=== PATIENT | male | born 1985 | race Caucasian/White ===

== ENCOUNTER 2019-03-07 14:45 | Emergency (ER) | payer OTHER, SELFPAY ==
--- NOTE | 2019-03-07 14:58 | NUR.NOTE ---
pt states that he has 10/10 neck pain that started 1 hr ago. pt states that the pain feels like a spasm as well as numbness also states that he is extremely nervous and jittery had identical symptoms around [place] was treated at [facility] and diagnosed with a panic attack
[2019-03-07 15:02] VITALS: BP 162/95; PULSE 98; RESP 25; TEMP 37; O2SAT 100
--- NOTE | 2019-03-07 15:04 | W.ED.GENAD ---
Discharge Plan Disposition Patient Disposition: HOME Discharge Details Chief Complaint: Nk/Back Pain Clinical Impression: Neck pain, Paresthesia of upper extremity Primary Care Provider: Crystal Young ED Provider: Primitivo Bennett Home Meds and New Rx's Prescriptions: Continued metaxalone [Skelaxin] 800 mg Tablet 800 mg PO QID RF: 0 Discharge Instructions Instructions: Paresthesia (ED), Neck Pain (ED) Additional Instructions: Please avoid overhead activities or any activities that worsen pain or produce numbness/tingling. Please follow-up with your neurologist or Dr. Maria. Call tomorrow to arrange follow-up. Please contact your primary care physician to arrange follow-up. Your blood pressure was elevated today. We should discuss this with your primary care physician. Return to the ER for any worsening or new concerning symptoms. Referrals: Crystal Young [Primary Care Provider] - Raysa Maria MD [ [facility] STAFF PHYSICIAN] - Discharge Data Discharge Date/Time-TO BE ENTERED AT DEPARTURE: 03/07/19 20:00 Medical Decision Making <ROMEO Walker - Last Filed: 03/08/19 20:19> Patient is a 33-year-old [id number] male presenting today with recurrent neck pain. Reports that he has chronic neck pain for which he sees a chiropractor. States he has had episode of severe neck pain like this historically, was previously seen at [facility]. These records were requested. Patient reports approximate 1 hour prior to arrival, he was working as a cooley doing overhead woodworking when he has sudden onset of neck pain that radiates on the bilateral upper extremities equally. Reports that his neck and arms are numb. Denies any weakness. Denies any trauma. No trauma prior to the initial onset of pain last year. Denies any recent illness. No fevers or chills. Denies any IV drug use. Denies any headache. No visual change. States that he is been feeling shaky in his lower extremities but attributes this to his severe anxiety. Patient does appear very anxious on exam. On exam, patient appears quite anxious. He is moving about quite comfortably with no evidence of discomfort reporting his pain is a 10 out of 10. He has full rotation movements of the neck and full flexion. Extension is limited secondary to pain. Pain is fairly diffuse with this movement rating down the entirety of the cervical spine. No midline tenderness to palpation, no step-off noted. No spasm palpated on exam. Two-point discrimination is intact, reflexes are equal bilaterally, strength is equal bilaterally with good extension of the wrist against resistance. Is full range of motion of the shoulders with no pain. Postvoid residual 55. Patient given Tylenol, ibuprofen and Valium to help with discomfort. Encourage gentle range of motion. I discussed risk and benefits of imaging. At this point, the patient does not have any evidence of infection, neurologic deficit or trauma, I do not know that imaging is necessary at this time. Also concidered vascular source but symptoms come/go and are equal bilaterally making this less likely. However, patient reports that my bones shift a lot. This is reported to him by his chiropractor for this reason he is requesting imaging. Will obtain plain films of the cervical spine to evaluate for any gross abnormality. At the end of my shift, care transitioned to Dr. Bennett. <Primitivo Bennett MD - Last Filed: 03/07/19 19:57> Care signed out by ROMEO Cooley. Please see ROMEO Baxter's documentation regarding initial ED presentation and course. Plan at signout was to await diagnostic reports from outside hospital and reassess patient for disposition. Despite attempts to obtain records from [facility] these were not available. X-ray of the cervical spine interpreted by radiology: No acute abnormality, loss of normal cervical lordosis. I reassessed the patient who noted that his paresthesias in upper extremities were resolved. He does also note now that he had some presyncope associated with his symptoms earlier today. Consider vascular insufficiency and potential dissection. CT of the cervical spine without contrast interpreted by radiology: No acute findings. No spinal stenosis. No neural foraminal narrowing. Loss of normal cervical lordosis. CTA of the neck interpreted by radiology: No acute findings. Left vertebral artery normal with no stenosis, no dissection or occlusion. Right vertebral artery normal with no stenosis, no dissection or occlusion. An EKG was reviewed and interpreted by me: Sinus rhythm 66 bpm, normal axis, nondiagnostic. Screening labs including CBC and chemistry reviewed by me. No electrolyte abnormalities. I did obtain outside hospital records from the [place]. MRI of the cervical spinen thoracic spine, lumbar spine on 10/06/2018 report reviewed: Stable very mild degenerative disc disease of the cervical spine in the setting of congenital, intrinsically narrowed cervical spinal canal. No central canal stenosis or cord signal abnormality. Mild to moderate right neuroforaminal narrowing at C4-5 and mild right neuroforaminal narrowing at C5-6. Small central disc protrusion at T10-11, new since prior. No central canal stenosis or neuroforaminal narrowing within the thoracic spine. Degenerative disc disease of the L4-L5 and L5-L1 levels, with the prior L4-L5 right central disc protrusion slightly increased in size from prior and now extending superiorly to the level of the L4 inferior endplate, compatible with a disc extrusion. Mild to moderate canal stenosis at L4-5 unchanged. Abutment of the transversing bilateral L5 and S1 nerve roots, unchanged. Unclear etiology for patient's constellation of symptoms. I do suspect anxiety is contrubiting to his symptoms and presentation today. I did speak with Dr. Maria, neurology about the case and she would be happy to see the patient in follow-up if symptoms persist for nerve conduction studies. I have provided this option to the patient although I think [facility] as he already has established care with neurology. Patient was encouraged to follow-up with neurology and to call tomorrow to arrange follow-up. I also recommended he return immediately to the emergency department for any worsening or new concerning symptoms. Patient was instructed to not perform any overhead activities or any activities that reproduce or worsen symptoms. HPI <ROMEO Walker - Last Filed: 03/08/19 20:19> General Mode of arrival: ambulatory. Date/Time Provider Initiated Documentation: 03/07/19 15:03. Limitations to Documentation: no limitations. Information obtained by: patient and RN notes reviewed. History of Present Illness 33 year old M presents to the emergency department with the chief complaint of neck pain, described as severe, with intensity rated at 10. Quality is described as stabbing, and is localized to the neck. Patient extremity (Bilateral upper extremities and torso). Patient started experiencing this hour(s) (1) and it has been constant. No relieving factors improve symptom(s), No exacerbating factors reported . Patient notes no other symptoms.; denies cough, diaphoresis, fever/chills, headaches, loss of appetite, malaise, nausea/vomiting, rash, seizure, shortness of breath, syncope and weakness. Patient did receive the following treatments prior to arrival, none Related Data Home Medications Medication Instructions Recorded Confirmed metaxalone [Skelaxin] 800 mg PO QID 03/07/19 03/07/19 Allergies Allergy/AdvReac Type Severity Reaction Status Date / Time No Known Allergies Allergy Unverified 03/07/19 15:04 General Stated Complaint: Nk/Back Pain KRISTAN: 3 Review of Systems <ROMEO Walker - Last Filed: 03/08/19 20:19> Constitutional Reports as per HPI, Denies chills, Denies fever(s), Denies headache(s) and Denies weakness ENT Denies headache(s) Cardiovascular Reports as per HPI, Denies dyspnea and Denies dyspnea on exertion Respiratory Reports as per HPI, Denies cough, Denies pain on inspiration, Denies pain with cough, Denies dyspnea and Denies dyspnea on exertion Gastrointestinal Denies abdominal pain, Denies change in bowel habits, Denies nausea and Denies vomiting Genitourinary Denies urinary hesitancy and Denies urinary incontinence Musculoskeletal Reports as per HPI, Denies abnormal gait, Reports back pain (back pain), Denies deformity, Denies joint swelling, Denies limited range of motion, Reports muscle cramps (endorses cramps in neck), Reports numbness (bilateral upper extremities), Reports radiating pain into limb and Denies tingling Integumentary/Breasts Reports as per HPI, Denies rash and Denies wounds Neurologic Reports as per HPI, Denies abnormal gait, Denies headache(s), Reports numbness (bilateral upper extremities), Denies tingling, Denies paresthesias and Denies weakness PFSH <ROMEO Walker - Last Filed: 03/08/19 20:19> Social History Smoking/Tobacco Use Status: Current-Occasional Tobacco Type: cigarettes Alcohol Intake: current Alcohol Intake frequency: a few times a month Alcohol type: beer Drug use: Occasionally Substance use type: marijuana Do you feel safe at home: Yes Do you feel safe in your relationship?: Yes Exam <ROMEO Walker Last Filed: 03/08/19 20:19> Const General: cooperative, healthy appearing, comfortable, no acute distress, well developed, well groomed and anxious Nutritional Appearance: average body habitus and well nourished Orientation: alert and awake Eyes General: appearance normal, both eyes and all related structures Neck Neck: limited ROM (lmited extension, full ROM otherwise), no lymphadenopathy, no meningeal signs and trachea midline Chest Chest: normal inspection of the chest, normal palpation of entire chest wall and no localized rib tenderness Resp Effort & Inspection: normal respiratory effort, able to speak in complete sentences and no respiratory distress Auscultation: clear to auscultation bilaterally Cardio Rate: regular rate Rhythm: regular rhythm Heart Sounds: S1 normal and S2 normal Back/Spine/Pelvis Cervical Spine: normal cervical lordosis, No cervical ROM normal (limited extension, full flexion and ROM), No cervical muscular tenderness, pain with cervical ROM, No cervical spasm, No cervical spinal tenderness and No step off deformity Thoracic/Lumbar Spine: thoracic and lumbar spine normal to inspection Skin General skin exam: no rashes or lesions noted Lesions: no lesions Rashes: no rashes Trauma: no lacerations or abrasions Neuro General: alert and awake Cognition: normal cognition Speech: speech normal Gait: normal gait Motor: muscle tone normal throughout, strength 5/5 throughout, no pronator drift, no movement abnormalities noted and no fasciculations Sensory Exam: no sensory deficits noted and normal double simultaneous stimulation (2 point in BUE intact) DTR's: Rt Biceps: 2+, Lt Biceps: 2+, Rt Brachioradialis: 2+ and Lt Brachioradialis: 2+ Extrem General: normal to inspection, full ROM, normal capillary refill, no joint enlargement, no clubbing, cyanosis or edema, no pedal edema, no calf tenderness and normal gait Right upper extremity: full ROM, normal capillary refill and no joint enlargement Left upper extremity: full ROM, normal capillary refill and no joint enlargement Psych Appearance: grossly normal and well kempt Mental Status: mental status grossly normal Speech and Movement: speech and movement normal Course <ROMEO Walker - Last Filed: 03/08/19 20:19> Vital Signs Temperature 37 C 03/07/19 15:02 Pulse 98 H 03/07/19 15:02 Respiratory Rate 25 H 03/07/19 15:02 Blood Pressure 162/95 H 03/07/19 15:02 Pulse Oximetry 100 03/07/19 15:02 Temperature 37 C 03/07/19 15:02 Temperature Source Skin 03/07/19 15:02 Pulse 98 H 03/07/19 15:02 Respiratory Rate 25 H 03/07/19 15:02 Blood Pressure 162/95 H 03/07/19 15:02 Blood Pressure Position Sitting 03/07/19 15:02 Pulse Oximetry 100 03/07/19 15:02 Oxygen Delivery Method Room Air 03/07/19 15:02 Oxygen Flow Rate 0 03/07/19 15:02 Pain Level 10 03/07/19 15:02 Sign Out <ROMEO Walker - Last Filed: 03/08/19 20:19> Sign Out Data: Sign Out Comment: Care transitioned to Dr. Bennett. Neuro exam intact, awaiting results from medication as well as x-ray results. Last updated by Natasha Baxter PA at 03/07/19 16:28
--- NOTE | 2019-03-07 15:36 | DI.COMBO_ITS ---
SYMPTOM/DIAGNOSIS: POST NECK PAIN, PRESYNCOPE, BILAT UPPER EXT PARESTHESIA, NUMBNESS CERVICAL SPINE: There is some straightening of the normal cervical lordosis. The vertebral bodies and disc spaces are intact. The posterior elements and neural canal are unremarkable The odontoid is closely applied to the anterior arch of C 1. SUMMARY: Aside from mild straightening of the normal cervical lordosis, the examination is unremarkable. There is no demonstrated fracture or evidence of a dislocation. CAROTID/NECK CTA: CT angiography was performed with multi slice acquisition and multi planar and 3D reconstruction. The study was carried out with an intravenous administration of 85 cc's of Omnipaque 350. The right common carotid artery is normal. The right internal carotid artery is normal. Both show no stenosis or evidence of dissection. The right external carotid artery is normal. The right vertebral artery is normal. The left common carotid artery is normal. The left internal carotid artery is normal. The left external carotid artery is normal. The left vertebral artery is normal. SUMMARY: No acute abnormality is identified. CERVICAL SPINE CT: There is some straightening of the normal cervical lordosis. The vertebral bodies and disc spaces and neural canal and posterior elements and odontoid and prevertebral soft tissues are unremarkable. IMPRESSION: No acute abnormality is identified.
--- NOTE | 2019-03-07 15:40 | ED.GENADUL_ITS ---
Discharge Plan Disposition Patient Disposition: HOME Discharge Details Chief Complaint: Nk/Back Pain Clinical Impression: Neck pain, Paresthesia of upper extremity Primary Care Provider: Crystal Young ED Provider: Primitivo Bennett Home Meds and New Rx's Prescriptions: Continued metaxalone [Skelaxin] 800 mg Tablet 800 mg PO QID RF: 0 Discharge Instructions Instructions: Paresthesia (ED), Neck Pain (ED) Additional Instructions: Please avoid overhead activities or any activities that worsen pain or produce numbness/tingling. Please follow-up with your neurologist or Dr. Maria. Call tomorrow to arrange follow-up. Please contact your primary care physician to arrange follow-up. Your blood pressure was elevated today. We should discuss this with your primary care p halley. Return to the ER for any worsening or new concerning symptoms. Referrals: Crystal Young [Primary Care Provider] - Raysa Maria MD [ [facility] STAFF PHYSICIAN] - Discharge Data Discharge Date/Time-TO BE ENTERED AT DEPARTURE: 03/07/19 20:00 Medical Decision Making <ROMEO Walker - Last Filed: 03/08/19 20:19> Patient is a 33-year-old [id number] male presenting today with recurrent neck pain. Reports that he has chronic neck pain for which he sees a chiropractor. States he has had episode of severe neck pain like this historically, was previously seen at [facility]. These records were requested. Patient reports approximate 1 hour prior to arrival, he was working as a cooley doing overhead woodworking when he has sudden onset of neck pain that radiates on the bilateral upper extremities equally. Reports that his neck and arms are numb. Denies any weakness. Denies any trauma. No trauma prior to the initial onset of pain last year. Denies any recent illness. No fevers or chills. Denies any IV drug use. Denies any headache. No visual change. States that he is been feeling shaky in his lower extremities but attributes this to his severe anxiety. Patient does appear very anxious on exam. On exam, patient appears quite anxious. He is moving about quite comfortably with no evidence of discomfort reporting his pain is a 10 out of 10. He has full rotation movements of the neck and full flexion. Extension is limited secondary to pain. Pain is fairly diffuse with this movement rating down the entirety of the cervical spine. No midline tenderness to palpation, no step-off noted. No spasm palpated on exam. Two-point discrimination is intact, reflexes are equal bilaterally, strength is equal bilaterally with good extension of the wrist against resistance. Is full range of motion of the shoulders with no pain. Postvoid residual 55. Patient given Tylenol, ibuprofen and Valium to help with discomfort. Encourage gentle range of motion. I discussed risk and benefits of imaging. At this point, the patient does not have any evidence of infection, neurologic deficit or trauma, I do not know that imaging is necessary at this time. Also concidered vascular source but symptoms come/go and are equal bilaterally making this less likely. However, patient reports that my bones shift a lot. This is reported to him by his chiropractor for this reason he is requesting imaging. Will obtain plain films of the cervical spine to evaluate for any gross abnormality. At the end of my shift, care transitioned to Dr. Bennett. <Primitivo Bennett MD - Last Filed: 03/07/19 19:57> Care signed out by ROMEO Cooley. Please see ROMEO Baxter's documentation regarding initial ED presentation and course. Plan at signout was to await diagnostic reports from outside hospital and reassess patient for disposition. Despite attempts to obtain records from [facility] these were not available. X-ray of the cervical spine interpreted by radiology: No acute abnormality, loss of normal cervical lordosis. I reassessed the patient who noted that his paresthesias in upper extremities were resolved. He does also note now that he had some presyncope associated wi th his symptoms earlier today. Consider vascular insufficiency and potential dissection. CT of the cervical spine without contrast interpreted by radiology: No acute findings. No spinal stenosis. No neural foraminal narrowing. Loss of normal cervical lordosis. CTA of the neck interpreted by radiology: No acute findings. Left vertebral artery normal with no stenosis, no dissection or occlusion. Right vertebral artery normal with no stenosis, no dissection or occlusion. An EKG was reviewed and interpreted by me: Sinus rhythm 66 bpm, normal axis, nondiagnostic. Screening labs including CBC and chemistry reviewed by me. No electrolyte abnormalities. I did obtain outside hospital records from the [place]. MRI of the cervical spinen thoracic spine, lumbar spine on 10/06/2018 report reviewed: Stable very mild degenerative disc disease of the cervical spine in the setting of congenital, intrinsically narrowed cervical spinal canal. No central canal stenosis or cord signal abnormality. Mild to moderate right neuroforaminal narrowing at C4-5 and mild right neuroforaminal narrowing at C5-6. Small central disc protrusion at T10-11, new since prior. No central canal stenosis or neuroforaminal narrowing within the thoracic spine. Degenerative disc disease of the L4-L5 and L5-L1 levels, with the prior L4-L5 right central disc protrusion slightly increased in size from prior and now extending superiorly to the level of the L4 inferior endplate, compatible with a disc extrusion. Mild to moderate canal stenosis at L4-5 unchanged. Abutment of the transversing bilateral L5 and S1 nerve roots, unchanged. Unclear etiology for patient's constellation of symptoms. I do suspect anxiety is contrubiting to his symptoms and presentation today. I did speak with Dr. Maria, neurology about the case and she would be happy to see the patient in follow-up if symptoms persist for nerve conduction studies. I have provided this option to the patient although I think [facility] as he already has established care with neurology. Patient was encouraged to follow-up with neurology and to call tomorrow to arrange follow-up. I also recommended he return immediately to the emergency department for any worsening or new concerning symptoms. Patient was instructed to not perform any overhead activities or any activities that reproduce or worsen symptoms. HPI <ROMEO Walker - Last Filed: 03/08/19 20:19> General Mode of arrival: ambulatory . Date/Time Provider Initiated Documentation: 03/07/19 15:03 . Limitations to Documentation: no limitations . Information obtained by: patient and RN notes reviewed . History of Present Illness 33 year old M presents to the emergency department with the chief complaint of neck pain, described as severe, with intensity rated at 10. Quality is described as stabbing, and is localized to the neck. Patient extremity (Bilateral upper extremities and torso). Patient started experiencing this hour(s) (1) and it has been constant. No relieving factors improve symptom(s), No exacerbating factors reported . Patient notes no other symptoms.; denies cough, diaphoresis, fever/chills, headaches, loss of appetite, malaise, nausea/vomiting, rash, seizure, shortness of breath, syncope and weakness. Patient did receive the following treatments prior to arrival, none Related Data Home Medications Medication Instructions Recorded Confirmed metaxalone [Skelaxin] 800 mg PO QID 03/07/19 03/07/19 Allergies Allergy/AdvReac Type Severity Reaction Status Date / Time No Known Allergies Allergy Unverified 03/07/19 15:04 General Stated Complaint: Nk/Back Pain KRISTAN: 3 Review of Systems <ROMEO Walker - Last Filed: 03/08/19 20:19> Constitutional Reports as per HPI, Denies chills, Denies fever(s), Denies headache(s) and Denies weakness ENT Denies headache(s) Cardiovascular Reports as per HPI, Denies dyspnea and Denies dyspnea on exertion Respiratory Reports as per HPI, Denies cough, Denies pain on inspiration, Denies pain with cough, Denies dyspnea and Denies dyspnea on exertion Gastrointestinal Denies abdominal pain, Denies change in bowel habits, Denies nausea and Denies vomiting Genitourinary Denies urinary hesitancy and Denies urinary incontinence Musculoskeletal Reports as per HPI, Denies abnormal gait, Reports back pain (back pain), Denies deformity, Denies joint swelling, Denies limited range of motion, Reports muscle cramps (endorses cramps in neck), Reports numbness (bilateral upper extremit ies), Reports radiating pain into limb and Denies tingling Integumentary/Breasts Reports as per HPI, Denies rash and Denies wounds Neurologic Reports as per HPI, Denies abnormal gait, Denies headache(s), Reports numbness (bilateral upper extremities), Denies tingling, Denies paresthesias and Denies weakness PFSH <ROMEO Walker - Last Filed: 03/08/19 20:19> Social History Smoking/Tobacco Use Status: Current-Occasional Tobacco Type: cigarettes Alcohol Intake: current Alcohol Intake frequency: a few times a month Alcohol type: beer Drug use: Occasionally Substance use type: marijuana Do you feel safe at home: Yes Do you feel safe in your relationship?: Yes Exam <ROMEO Walker - Last Filed: 03/08/19 20:19> Const General: cooperative, healthy appearing, comfortable, no acute distress, well developed, well groomed and anxious Nutritional Appearance: average body habitus and well nourished Orientation: alert and awake Eyes General: appearance normal, both eyes and all related structures Neck Neck: limited ROM (lmited extension, full ROM otherwise), no lymphadenopathy, no meningeal signs and trachea midline Chest Chest: normal inspection of the chest, normal palpation of entire chest wall and no localized rib tenderness Resp Effort & Inspection: normal respiratory effort, able to speak in complete sentences and no respiratory distress Auscultation: clear to auscultation bilaterally Cardio Rate: regular rate Rhythm: regular rhythm Heart Sounds: S1 normal and S2 normal Back/Spine/Pelvis Cervical Spine: normal cervical lordosis, No cervical ROM normal (limited extension, full flexion and ROM), No cervical muscular tenderness, pain with cervical ROM, No cervical spasm, No cervical spinal tenderness and No step off deformity Thoracic/Lumbar Spine: thoracic and lumbar spine normal to inspection Skin General skin exam: no rashes or lesions noted Lesions: no lesions Rashes: no rashes Trauma: no lacerations or abrasions Neuro General: alert and awake Cognition: normal cognition Speech: speech normal Gait: normal gait Motor: muscle tone normal throughout, strength 5/5 throughout, no pronator drift, no movement abnormalities noted and no fasciculations Sensory Exam: no sensory deficits noted and normal double simultaneous stimulation (2 point in BUE intact) DTR's: Rt Biceps: 2+, Lt Biceps: 2+, Rt Brachioradialis: 2+ and Lt Brachioradialis: 2+ Extrem General: normal to inspection, full ROM, normal capillary refill, no joint enlargement, no clubbing, cyanosis or edema, no pedal edema, no calf tenderness and normal gait Right upper extremity: full ROM, normal capillary refill and no joint enlargement Left upper extremity: full ROM, normal capillary refill and no joint enlargement Psych Appearance: grossly normal and well kempt Mental Status: mental status grossly normal Speech and Movement: speech and movement normal Course <ROMEO Walker - Last Filed: 03/08/19 20:19> Vital Signs Temperature 37 C 03/07/19 15:02 Pulse 98 H 03/07/19 15:02 Respiratory Rate 25 H 03/07/19 15:02 Blood Pressure 162/95 H 03/07/19 15:02 Pulse Oximetry 100 03/07/19 15:02 Temperature 37 C 03/07/19 15:02 Temperature Source Skin 03/07/19 15:02 Pulse 98 H 03/07/19 15:02 Respiratory Rate 25 H 03/07/19 15:02 Blood Pressure 162/95 H 03/07/19 15:02 Blood Pressure Position Sitting 03/07/19 15:02 Pulse Oximetry 100 03/07/19 15:02 Oxygen Delivery Method Room Air 03/07/19 15:02 Oxygen Flow Rate 0 03/07/19 15:02 Pain Level 10 03/07/19 15:02 Sign Out <ROMEO Walker - Last Filed: 03/08/19 20:19> Sign Out Data: Sign Out Comment: Care transitioned to Dr. Bennett. Neuro exam intact, awaiting results from medication as well as x-ray results. Last updated by Natasha Baxter PA at 03/07/19 16:28
[2019-03-07] MEDS: Ibuprofen 600 MG TAB PO (15:47)
[2019-03-07] MEDS: diazePAM 5 MG TAB PO (15:47)
--- NOTE | 2019-03-07 15:48 | NUR.NOTE ---
bladder scan post void was 55 ML
--- NOTE | 2019-03-07 16:30 | DI.VRAD_ITS ---
EXAM: XR Cervical Spine, 4 or 5 Views EXAM DATE/TIME: 03/07/2019 3:38 PM CLINICAL HISTORY: 33 years old, male; Neck pain and other: Numbess TECHNIQUE: Imaging protocol: XR of the cervical spine, 4 or 5 views. COMPARISON: No relevant prior studies available. FINDINGS: Vertebrae: Normal. No acute fracture. Loss of normal cervical lordosis. Soft tissues: Normal. IMPRESSION: No acute findings. Dictated and Authenticated by: Delano Green MD. Ordering:ALLI Kaur MD
--- NOTE | 2019-03-07 16:57 | NUR.NOTE ---
pt states that his neck pain has decreased and sensation has returned
--- NOTE | 2019-03-07 18:21 | DI.VRAD_ITS ---
EXAM: CT Cervical Spine Without Contrast EXAM DATE/TIME: 03/07/2019 5:22 PM CLINICAL HISTORY: 33 years old, male; Signs and symptoms; Other: Pain in neck, paresthesias b/l ue's, presyncope TECHNIQUE: Imaging protocol: Axial computed tomography images of the cervical spine without contrast. Coronal and sagittal reformatted images were created and reviewed. Radiation optimization: All CT scans at this facility use at least one of these dose optimization techniques: automated exposure control; mA and/or kV adjustment per patient size (includes targeted exams where dose is matched to clinical indication); or iterative reconstruction. COMPARISON: CR XR cervical spine comp 4-5V 03/07/2019 4:01 PM FINDINGS: Vertebrae: No acute fracture. Loss of normal cervical lordosis. Discs/Spinal canal/Neural foramina: No spinal stenosis. No neural foraminal narrowing. Soft tissues: Unremarkable. Lungs: Lung apices are normal. IMPRESSION: No acute findings. Dictated and Authenticated by: Delano Green MD. Ordering:DANIELLA Langford MD
--- NOTE | 2019-03-07 18:26 | DI.VRAD_ITS ---
EXAM: CT Angiography Neck With Contrast EXAM DATE/TIME: 03/07/2019 5:31 PM CLINICAL HISTORY: 33 years old, male; Signs and symptoms; Other: Pain in post neck, presyncope, b/l ue paresthesia TECHNIQUE: Imaging protocol: Axial computed tomographic angiography images of the neck with intravenous contrast using CT angiography protocol. Coronal and sagittal reformatted images were created and reviewed. 3D rendering: MIP reconstructed images were created and reviewed. Radiation optimization: All CT scans at this facility use at least one of these dose optimization techniques: automated exposure control; mA and/or kV adjustment per patient size (includes targeted exams where dose is matched to clinical indication); or iterative reconstruction. Contrast material: OMNIPAQUE 350; Contrast volume: 85 ml; Contrast route: IV; COMPARISON: CT Spine^C SPINE WITH OUT (Adult) 03/07/2019 5:43 PM FINDINGS: VASCULATURE: Right common carotid artery: Normal. No stenosis. No dissection or occlusion. Right internal carotid artery: Normal. No stenosis in the extracranial segment. No dissection or occlusion. Right external carotid artery: Normal. No occlusion or stenosis. Right vertebral artery: Normal. No stenosis. No dissection or occlusion. Left common carotid artery: Normal. No stenosis. No dissection or occlusion. Left internal carotid artery: Normal. No stenosis in the extracranial segment. No dissection or occlusion. Left external carotid artery: Normal. No stenosis. No dissection or occlusion. Left vertebral artery: Normal. No stenosis. No dissection or occlusion. NECK: Bones/joints: No acute fracture. Soft tissues: Normal. No significant soft tissue swelling. IMPRESSION: No acute findings. COMMENT: Reference per NASCET criteria for degree of stenosis: Mild: less than 50% stenosis. Moderate: 50-69% stenosis. Severe: 70-94% stenosis. Near occlusion: 95-99% Dictated and Authenticated by: Delano Green MD. Ordering:DANIELLA Langford MD
[2019-03-07] MEDS: Omnipaque 350 MG/ML 100 ML BTL IJ (19:01)
[2019-03-07 19:16] LABS: Abs Immature Grans 0.01 k/cumm (0.0-0.09); Absolute Basophil Count 0.03 k/cumm (0.0-0.2); Absolute Eosinophil Count 0.04 k/cumm (0.0-0.7); Absolute Lymphocyte Count 1.96 k/cumm (1.2-3.4); Absolute Monocyte Count 0.35 k/cumm (0.11-0.7); Absolute Neutrophil Count 4.64 k/cumm (1.2-6.7); Basophils % 0.4; Eosinophils % 0.6; HGB 14.9 g/dL (13.5-17.5); Immature Grans % 0.1; Lymphocytes % 27.9; Mean Corp. HGB Concentration 36.3 g/dL (32.0-36.0); Mean Corpuscular Hemoglobin 28.5 pg (27.0-33.0); Mean Corpuscular Volume 78.4 fL (80-95); Mean Platelet Volume 8.2 fL (8.0-11.0); Platelet Count 263 x1000/uL (130-400); RBC 5.23 m/cumm (4.50-6.00); RBC Distribution Width 12.9 % (11.8-14.1); White Blood Cell Count 7.03 k/cumm (4.4-10.8)
[2019-03-07] MEDS: Normal Saline 500 ML IV (19:18)
[2019-03-07 19:33] LABS: ALT 20 U/L (12-78); AST 21 U/L (15-37); Albumin 3.9 g/dL (3.4-5.0); Alkaline Phosphatase 91 U/L (46-116); Anion Gap 10.9 mmol/L (3-11); BUN 12 mg/dL (7-18); Bilirubin, Total 0.4 mg/dL (0.2-1.0); CO2 26.1 mmol/L (21.0-32.0); CREATININE 0.93 mg/dL (0.70-1.30); Calcium 8.6 mg/dL (8.5-10.1); Chloride 100 mmol/L (98-107); Glucose 80 mg/dL (70-100); Potassium 3.7 mmol/L (3.5-5.1); Sodium 137 mmol/L (136-145); Total Protein 6.8 g/dL (6.4-8.2)
[2019-03-07 19:51] VITALS: BP 133/75; PULSE 68; RESP 17; TEMP 36.8; O2SAT 97
[2019-03-07 20:03] VITALS: BP 133/75; PULSE 68; RESP 17; TEMP 36.8; O2SAT 97
== END 2019-03-07 20:00 | disposition home or self-care (01) ==
PROVIDERS: Emergency Provider Student in an Organized Health Care Education/Training Program; PCP Internal Medicine
DX: M54.2 Cervicalgia (principal); R20.2 Paresthesia of skin; G89.29 Other chronic pain; R20.0 Anesthesia of skin; X50.0XXA Overexertion from strenuous movement or load, initial encounter
CPT/HCPCS: 36415; 70498; 80053; 93005; 96360; 99285; 72050; 72125; 85025; 93010; 99284; J3490

== ENCOUNTER 2025-05-17 16:08 | Emergency (ER) | payer OTHER, SELFPAY ==
[2025-05-17] VITALS (19 sets, daily range): BP systolic 129–143; BP diastolic 76–89; PULSE 65–104; RESP 16–24; O2SAT 94–100
--- NOTE | 2025-05-17 16:15 | DI.CT_ITS ---
Exam(s) CT HEAD CERVICAL SPINE WO EXAM: CT HEAD CERVICAL SPINE WO CLINICAL HISTORY: fall, back injury. TECHNIQUE: Imaging Protocol: Axial computed tomography images with coronal and sagittal reformatted images were created and reviewed COMPARISON: CT CT CERVICAL SPINE WO from 03/07/2019 FINDINGS: BRAIN: There are no skull fractures nor fluid in the visualized paranasal sinuses. There is no evidence of intracranial hemorrhage, mass effect, or shift of midline structures. There are no extra-axial fluid collections. The ventricles are not enlarged or shifted and there is no blood within the ventricular system nor within the basal cisterns. CERVICAL SPINE: There is no evidence of fracture nor listhesis. No significant prevertebral soft tissue swelling. There is no significant facet joint malalignment. No significant osseous lesions evident. IMPRESSION: No acute intracranial findings on this noninfused CT scan of the brain. No evidence of cervical spine fracture, malalignment, nor acute compromise of the cervical spinal canal. Report called by myself to ER provider on 05/17/2025 at 5:04 p.m. RADIATION DOSE DELIVERED: 1,318.41mGy.cm Total DLP DATA REPOSITORY: All CT scans at this facility are submitted to the National Radiology Data Registry (NRDR) Dose Index Registry (DIR) with the [employer] (ACR). RADIATION OPTIMIZATION: All CT scans at this facility use at least one of these dose optimization techniques: automated exposure control; mA and/or kV adjustment per patient size (includes targeted exams where dose is matched to clinical indication); or iterative reconstruction.
--- NOTE | 2025-05-17 16:23 | DI.CT_ITS ---
Exam(s) CT THORACIC LUMBAR SPINE REC EXAM: CT THORACIC LUMBAR SPINE REC CLINICAL HISTORY: trauma back pain TECHNIQUE: COMPARISON: CT CT CAROTID NECK CTA from 03/07/2019 FINDINGS: THORACIC SPINAL COLUMN: No evidence of compression or wedge fractures. No facet joint malalignment. There is small osteophytic densities noted off the posterior aspects of the spinous process is of T4, T5, and T6. These are probably calcification within the posterior aspect of the inter spinous ligament at these levels although cannot exclude small fractures these levels. There is no acute compromise of the spinal canal. LUMBOSACRAL SPINAL COLUMN: No evidence of fracture. No listhesis. No pars defects. No facet joint malalignment. There is minimally decreased disc height at L4-5 level broad annular bulging and mild central spinal canal stenosis. There is moderate disc space narrowing at L5-S1 level. Mild canal stenosis also evident at this level. Sacroiliac joints appear unremarkable. There are no fractures in the visualized sacrum. IMPRESSION: No significant fractures evident in the thoracic and lumbar levels. No evidence of acute canal compromise. Small calcifications posteriorly at T4, T5, and T6 levels are probably calcification within the posterior aspect of the inter spinous ligament at these levels. Correlation with site of tenderness is recommended. Report called by myself to ER provider 05/17/2025 at 6:10 p.m.
--- NOTE | 2025-05-17 16:26 | W.ED.GENAD ---
Discharge Plan Disposition Patient Disposition: Home Discharge Details Clinical Impression: Lumbar strain, Coccyx contusion Primary Care Provider: Crystal Young ED Provider: Katherine Dumont Home Meds and New Rx's Prescriptions: New cyclobenzaprine 10 mg tablet 10 mg PO TID PRNQty: 10 0RF Discontinued metaxalone [Skelaxin] 800 mg Tablet 800 mg PO QID Discharge Instructions Instructions: Acute Pain, Adult (DC), Back Muscle Strain (DC) Additional Instructions: Motrin 600 mg every 8 hours with food Take Tylenol needed for breakthrough pain I have given you prescription for Flexeril do not combine with alcohol Please return with worsening pain strength or sensation changes, or should any new concerns arise Follow-up with your PCP for recheck in 1 week for reassessment Referrals: Crystal Young [Primary Care Provider, Medicine] Discharge Data Discharge Date/Time-TO BE ENTERED AT DEPARTURE: 05/17/25 19:01 HPI General Date/Time Provider Initiated Documentation: 05/17/25 16:15. HPI Narrative: The patient is an otherwise healthy 40-year-old male who presents with a report of a fall. He recounts an incident where he was swinging on a rope and accidentally slipped, landing directly on his buttocks in a seated position. He is uncertain about the height from which he fell. He reports no joint-related incidents, chest pain, shortness of breath, or loss of consciousness. He also has no history of coagulopathy. It is noteworthy that he had consumed a couple of alcoholic beverages today. Related Data Home Medications ?Medication ?Instructions ?Recorded ?Confirmed cyclobenzaprine 10 mg tablet 10 mg PO TID PRN #10 tabs 05/17/25 Previous Rx's ?Medication ?Instructions ?Recorded cyclobenzaprine 10 mg tablet 10 mg PO TID PRN #10 tabs 05/17/25 Allergies Allergy/AdvReac Type Severity Reaction Status Date / Time No Known Allergies Allergy Unverified 05/17/25 16:19 General Stated Complaint: Trauma KRISATN: 2 Exam Narrative Exam Narrative: General Appearance: Tearful, appears in discomfort. Alert and oriented. Vital signs: Within normal limits. HEENT: PERRLA. Respiratory: No chest wall tenderness. Gastrointestinal: Tender around pelvic region, no instability. No abdominal bruising or trauma. No flank ecchymosis. Genitourinary: Sensation intact to groin. Back, Musculoskeletal: No cervical spine tenderness. Extremities: Neurovascularly intact to bilateral lower and upper extremities. Skin: Warm and dry, no rash. Neurological: GCS 15, alert and oriented x4. Answering questions appropriately. Medical Decision Making - Laboratory Studies: - Gap: 17 - Imaging: - CT chest, abdomen, pelvis, thoracic, lumbar spine, head, and cervical spine: These results were personally discussed with Dr. Martin radiologist - No acute fracture or pathology - Area of calcification in thoracic spine Initial Assessment: 40-year-old male with fall-related injury, landing on buttocks. No loss of consciousness, chest pain, or shortness of breath. Alert and oriented, GCS 15. Pelvic tenderness without instability, no abdominal bruising or trauma, no flank ecchymosis. Sensation intact to groin, neurovascularly intact to bilateral lower and upper extremities. No cervical spine tenderness. ED Course: - Labs showed gap of 17. - Given 1 L fluids. - Administered 4 mg morphine followed by 2 mg morphine. - CT chest, abdomen, pelvis, thoracic spine, lumbar spine, head, and cervical spine showed no acute fractures or pathology, read by me. - Area of calcification noted in thoracic spine, patient nontender in this area. - Administered Flexeril. -Ambulatory trial performed prior to being discharged with cardiology technologistchalo Alicia, patient declined crutches or walker Final Assessment: Labs and imaging performed, fluids and pain management administered, no acute fractures or pathology found. Discharged home with instructions for rest, pain management, and hydration. Clinical Impression: - Fall-related injury. Disposition: - Discharged home, stable condition with antalgic but steady gait, neurovascularly intact. - Return precautions reviewed and understood. Patient Education: Rest, take ibuprofen and Tylenol for pain, hydrate. Return precautions reviewed and understood. PFSH All Active Problems (Updated 05/17/25 @ 18:54 by ROMEO Adan) Coccyx contusion (Acute) Lumbar strain (Acute) Social History Smoking/Tobacco Use Status: Current-Occasional Tobacco Type: cigarettes Smoking risk assessment performed?: Yes Alcohol Intake: current Alcohol Intake frequency: holidays/special occasions only Alcohol type: beer Drug use: Occasionally Substance use type: marijuana Housing: homeless Do you feel safe at home: Yes Do you feel safe in your relationship?: Yes
[2025-05-17 16:29] LABS: Abs Immature Grans 0.02 10^3/uL (0.0-0.06); HCT 42.0 % (40.0-50.0); HGB 14.4 g/dL (13.5-17.5); Immature Grans % 0.3 %; MCH 28.0 pg (27.0-33.0); MCHC 34.3 % (32.0-36.0); MCV 82 fL (80-95); MPV 8.0 fL (8.0-11.0); Platelet Count 295 10^3/uL (130-400); RBC 5.14 10^6/uL (4.36-5.78); RDW 12.6 % (11.8-14.1); RDW-SD 37.5 fL; WBC 7.34 10^3/uL (4.4-10.8)
[2025-05-17] MEDS: MORPHine 10 MG/ML VIAL 2 MG IVP (16:29)
--- NOTE | 2025-05-17 16:30 | DI.CT_ITS ---
Exam(s) CT CHEST/ABD/PEL W EXAM: CT CHEST/ABD/PEL W CLINICAL HISTORY: pain pelvis and back/ rope swing fall 15 ft/rock. TECHNIQUE: Imaging Protocol: Axial computed tomography images with coronal and sagittal reformatted images were created and reviewed CONTRAST MATERIAL: Intravenous: Omnipaque 350 Contrast volume:100 ml Oral: None COMPARISON: CT CT THORACIC LUMBAR SPINE REC from 05/17/2025 FINDINGS: CHEST: LUNGS: No evidence of lung contusion or pleural effusion or pneumothorax. Lungs are clear. No focal findings in trachea and mainstem bronchi. No rib fractures identified.. MEDIASTINUM: No evidence of sternal fracture nor mediastinal hematoma. No hilar nor mediastinal adenopathy. CARDIAC: Heart size is normal. There is no pericardial effusion.Thoracic aorta appears unremarkable. OSSEOUS: No rib fractures nor scapular fractures. No thoracic vertebral compression fractures. Some disc space narrowing at T11-T12 level noted which has a chronic appearance. No facet joint malalignment.. ABDOMEN: No ascites and no evidence of bowel wall nor mesenteric hematoma. LIVER: Intact. No laceration or subcapsular hematomas. No incidental lesions. GALLBLADDER/BILIARY: No obvious gallbladder pathology. CBD is not dilated. PANCREAS: No evidence of pancreatic mass nor dilatation of the pancreatic duct. SPLEEN: Intact. No lacerations. Normal size. No lesions. Splenic and portal veins are patent. ADRENALS: No evidence of adrenal mass nor adrenal hemorrhage KIDNEYS: No renal lacerations nor subcapsular hematomas.. No incidental calculi nor lesions in the kidneys. No hydronephrosis. ABDOMINAL AORTA: Intact. Unremarkable. Iliac arteries also unremarkable. LYMPH NODES: There is no retroperitoneal nor paraaortic adenopathy. ABDOMINAL WALL: No evidence of significant anterior abdominal wall nor inguinal hernia. GI: Stomach is distended. No evidence of bowel obstruction. PELVIS: LYMPH NODES: There is no intrapelvic nor inguinal adenopathy. GI: No evidence of appendicitis.No evidence of sigmoid diverticulitis. URINARY BLADDER: Intact. Not overly distended. No extravasation. No intraluminal clots. REPRODUCTIVE: Prostate not enlarged. OSSEOUS: No evidence of pelvic nor hip fractures. Sacroiliac joints unremarkable. Lumbar vertebrae are unremarkable no fractures nor facet malalignment. There is moderate disc space narrowing at L5-S1 level IMPRESSION: 1. No evidence of significant trauma sequelae in the chest, abdomen, and pelvis. 2. See separate spine report Report called by myself to ER provider 05/17/2025 at 6:01 p.m. RADIATION DOSE DELIVERED: 296.39mGy.cm Total DLP DATA REPOSITORY: All CT scans at this facility are submitted to the National Radiology Data Registry (NRDR) Dose Index Registry (DIR) with the [employer] (ACR). RADIATION OPTIMIZATION: All CT scans at this facility use at least one of these dose optimization techniques: automated exposure control; mA and/or kV adjustment per patient size (includes targeted exams where dose is matched to clinical indication); or iterative reconstruction.
[2025-05-17] MEDS: ACETAMINOPHEN 500 MG/50 ML BAG 200 MG IVPB (16:33)
[2025-05-17] MEDS: Normal Saline Flush 10 ML SYR IVP (16:37)
[2025-05-17 16:45] LABS: Lipase 40 U/L (<78)
[2025-05-17 16:51] LABS: ALT 55 U/L (16-63); AST 68 U/L (15-37); Albumin 3.7 g/dL (3.4-5.0); Alkaline Phosphatase 137 U/L (46-116); Anion Gap 17.3 mmol/L (3-11); BUN 18 mg/dL (7-18); Bilirubin, Total 0.4 mg/dL (0.2-1.0); CO2 21.7 mmol/L (21.0-32.0); Calcium 9.0 mg/dL (8.5-10.1); Chloride 102 mmol/L (98-107); Estimated GFR 79.38 (mL/min/1.73m2); Glucose 140 mg/dL (74-106); Potassium 3.5 mmol/L (3.5-5.1); Sodium 141 mmol/L (136-145); Total Protein 7.2 g/dL (6.4-8.2)
[2025-05-17] MEDS: MORPHine 4 MG/ML SYR IVP (17:09)
[2025-05-17] MEDS: Omnipaque 350 MG/ML 100 ML BTL IJ (17:10)
[2025-05-17] MEDS: Normal Saline - Diluent 50 ML VIAL IJ (17:10)
[2025-05-17] MEDS: Normal Saline 1,000 ML 1000 ML IV (17:42)
[2025-05-17 18:36] LABS: Glucose Negative (Negative)
[2025-05-17] MEDS: Cyclobenzaprine 10 MG TAB, 3 TABS/BTL PO (18:56)
== END 2025-05-17 19:01 | disposition home or self-care (01) ==
PROVIDERS: Emergency Provider Physician Assistant; PCP Internal Medicine
DX: S39.012A Strain of muscle, fascia and tendon of lower back, initial encounter (principal); S30.0XXA Contusion of lower back and pelvis, initial encounter; F17.210 Nicotine dependence, cigarettes, uncomplicated; W17.89XA Other fall from one level to another, initial encounter; Y93.89 Activity, other specified; Y92.838 Other recreation area as the place of occurrence of the external cause
CPT/HCPCS: 36415; 74177; 80053; 83690; 86850; 86900; 86901; 96361; 96374; 96375; 96376; 99285; 70450; 71260; 72125; 81003; 85025; J0131; J2270; J3490

== ENCOUNTER 2025-05-19 00:20 | Emergency (ER) | payer OTHER, SELFPAY ==
[2025-05-19 00:33] VITALS: BP 139/83; PULSE 94; RESP 18; TEMP 36.8; O2SAT 99
[2025-05-19] MEDS: MORPHine 4 MG/ML SYR IVP (02:00)
[2025-05-19] MEDS: Ondansetron 4 MG/2 ML VIAL IVP (02:00)
[2025-05-19] MEDS: ACETAMINOPHEN 1,000 MG/100 ML BAG 400 MG IVPB (02:01)
[2025-05-19 02:06] LABS: Glucose Negative (Negative)
--- NOTE | 2025-05-19 03:02 | W.ED.GENAD ---
Discharge Plan Disposition Patient Disposition: Transfer-Acute Inpatient Care Specific Acute Inpt Facility: [facility] Condition: Serious Discharge Details Clinical Impression: Arm paresthesia, left, Arm paresthesia, right, Right leg paresthesias, Left leg paresthesias Primary Care Provider: Crystal Young ED Provider: Yuniel Thurston Home Meds and New Rx's Prescriptions: No Action cyclobenzaprine 10 mg tablet 10 mg PO TID PRNQty: 10 0RF HPI General Date/Time Provider Initiated Documentation: 05/19/25 00:46. HPI Narrative: This is a 40-year-old male with a past medical history of chronic low back pain, who presents today for numbness of his upper extremities. Diminished sensation throughout his entire body. Patient was here about 36 hours ago, at that time he had been on a rope swing, the rope swing slipped and this caused him to hit his buttock onto a [place] extremely hard. He did not hit his back head or neck. He came to the ED and had a notably thorough and appropriate workup including CT scans of the head neck chest abdomen pelvis thoracic and lumbar spine. All CT imaging was read as negative for acute process or fracture. He was otherwise asymptomatic Cipro pain in his buttock, and appropriately discharged home. He had done well throughout the rest of the day Cipro mild soreness until he woke up this morning and states that he was completely numb in his left arm, and notably numb in his right arm, and had an atypical sensation feeling throughout his chest abdomen pelvis and legs. He states that he is peeing frequently, and feels like he has to go very suddenly, but denies any actual urinary incontinence. He denies any stool incontinence. He denies any saddle or groin anesthesia. He denies any fever or chills. He denies any weakness in his upper or lower extremities but does state that he feels a bit fatigued in general. No other complaints at this time. No other modifying factors. Related Data Home Medications ?Medication ?Instructions ?Recorded ?Confirmed cyclobenzaprine 10 mg tablet 10 mg PO TID PRN #10 tabs 05/17/25 05/19/25 Previous Rx's ?Medication ?Instructions ?Recorded cyclobenzaprine 10 mg tablet 10 mg PO TID PRN #10 tabs 05/17/25 Allergies Allergy/AdvReac Type Severity Reaction Status Date / Time No Known Allergies Allergy Unverified 05/19/25 00:41 General Stated Complaint: Trauma KRISTAN: 3 Exam Narrative Exam Narrative: 1.Const: Well-nourished, Well-developed, appearing stated age 2.Eyes: PERRL, no conjunctival injection, and symmetrical lids. 3.ENT: Atraumatic external nose and ears. Moist MM. Neck: Symmetric, trachea midline, No thyromegaly. 4.CVS: +S1/S2, Peripheral pulses 2+ and equal in all extremities. Brisk capillary refill in all extremities. 5.RESP: Unlabored respiratory effort. Clear to auscultation bilaterally. No wheezes rales or rhonchi 6.GI: Soft, Nontender/Nondistended, No hepatosplenomegaly. No guarding or rebound. 7.MSK: Normocephalic/Atraumatic, Extremities w/o deformity or ttp No cyanosis or clubbing, Normal movement of all extremities No midline tenderness to palpation over the CTLS spine. Normal ROM in flexion, extension, side bend, and rotation. Patient has +5 out of 5 strength in the lower extremities in dorsiflexion and plantarflexion, knee flexion and extension, hip flexion and extension. Normal strength for dorsiflexion and plantar flexion of the great toe bilaterally. There is +2 over 2 dorsalis pedis pulses bilaterally. Normal saddle sensation. Normal sensation over the groin, penis, and rectum. Rectal exam demonstrates good rectal tone with excellent [place]-rectal sensation. Reflexes are +1 over 4 in the patellar reflex bilaterally. +5 out of 5 strength in the medial, ulnar, radial nerve distribution bilaterally in the hands. 8.Skin: Warm, Dry. No rashes or lesions. 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 Patient demonstrates a very odd sensory exam. Left upper extremity: No ability to sense light touch, pinprick, deep stabbing pain, needle prick, removal of hair, or temperature. He is able to feel his arm moving, and he is able to control and move it well. He has brisk capillary refill, and intact radial pulse. The lack of sensation extends all the way proximally to the axillary region, Right upper extremity: Patient demonstrates inability to sense pinprick, or light touch, but he is able to feel pressure with deep deep palpation, and movement of the upper extremity passively. He is able to perform active movement of the right upper extremity with a +2 radial pulse, and brisk capillary refill. This extends all the way up to the chest and axillary region. Chest abdomen and back: Patient demonstrates diminished sensation of the chest abdomen and back. He is able to feel light touch, and pinprick, but does not have any significant pain with painful stimuli. Genitals: Patient demonstrates intact sensation in the scrotum and penile areas as well as the rectal area. Normal sensation here. No saddle anesthesia Lower extremities bilaterally: Patient demonstrates intact light touch, pinprick, and deep palpatio, all of which aren, subjectively diminished to the patient. Minimal painful response with deep seeded pain stimuli, including plucking of hair, or firm painful pressure. 10.Psych: (AAO) x3. Appropriate mood and affect Course Vital Signs Vital signs: Vital Signs Temperature 36.8 C 05/19/25 00:33 Pulse 94 H 05/19/25 00:33 Respiratory Rate 18 05/19/25 00:33 Blood Pressure 139/83 05/19/25 00:33 Pulse Oximetry 99 05/19/25 00:33 Temperature 36.8 C 05/19/25 00:33 Temperature Source Oral 05/19/25 00:33 Pulse 94 H 05/19/25 00:33 Respiratory Rate 18 05/19/25 00:33 Respiratory Effort Normal, Non-Labored 05/19/25 00:38 Respiratory Depth Normal 05/19/25 00:38 Respiratory Pattern Normal 05/19/25 00:38 Blood Pressure 139/83 05/19/25 00:33 Blood Pressure Position Supine 05/19/25 00:33 Pulse Oximetry 99 05/19/25 00:33 Pain Level 9 05/19/25 02:00 Lab/Test Results Lab/Test Results: Laboratory Tests Range/Units 05/19/25 01:05 Urine Color (Yellow) Yellow Urine Clarity (Clear) Clear Urine pH (5-8) 6.0 Ur Specific [place] (1.005-1.025) 1.010 Urine Protein (Neg-Trace) mg/dL Negative Urine Ketones (Negative) mg/dL Negative Urine Blood (Negative) Negative Urine Nitrite (Negative) Negative Urine Bilirubin (Negative) Negative Urine Urobilinogen (Up to 0.2) mg/dL 0.2 Ur Leukocyte Esterase (Negative) Negative Urine Glucose (Negative) mg/dL Negative Medical Decision Making This is a 40-year-old male with a past medical history of chronic low back pain, who presents today for numbness of his upper extremities. Diminished sensation throughout his entire body. Patient was here about 36 hours ago, at that time he had been on a rope swing, the rope swing slipped and this caused him to hit his buttock onto a [place] extremely hard. He did not hit his back head or neck. He came to the ED and had a notably thorough and appropriate workup including CT scans of the head neck chest abdomen pelvis thoracic and lumbar spine. All CT imaging was read as negative for acute process or fracture. He was otherwise asymptomatic Cipro pain in his buttock, and appropriately discharged home. He had done well throughout the rest of the day Cipro mild soreness until he woke up this morning and states that he was completely numb in his left arm, and notably numb in his right arm, and had an atypical sensation feeling throughout his chest abdomen pelvis and legs. He states that he is peeing frequently, and feels like he has to go very suddenly, but denies any actual urinary incontinence. He denies any stool incontinence. He denies any saddle or groin anesthesia. He denies any fever or chills. He denies any weakness in his upper or lower extremities but does state that he feels a bit fatigued in general. No other complaints at this time. No other modifying factors. 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 Patient demonstrates a very odd sensory exam. Left upper extremity: No ability to sense light touch, pinprick, deep stabbing pain, needle prick, removal of hair, or temperature. He is able to feel his arm moving, and he is able to control and move it well. He has brisk capillary refill, and intact radial pulse. The lack of sensation extends all the way proximally to the axillary region, Right upper extremity: Patient demonstrates inability to sense pinprick, or light touch, but he is able to feel pressure with deep deep palpation, and movement of the upper extremity passively. He is able to perform active movement of the right upper extremity with a +2 radial pulse, and brisk capillary refill. This extends all the way up to the chest and axillary region. Chest abdomen and back: Patient demonstrates diminished sensation of the chest abdomen and back. He is able to feel light touch, and pinprick, but does not have any significant pain with painful stimuli. Genitals: Patient demonstrates intact sensation in the scrotum and penile areas as well as the rectal area. Normal sensation here. No saddle anesthesia Lower extremities bilaterally: Patient demonstrates intact light touch, pinprick, and deep palpatio, all of which aren, subjectively diminished to the patient. Minimal painful response with deep seeded pain stimuli, including plucking of hair, or firm painful pressure. Sensation and nerve distribution abnormalities are notably atypical and unexpected. Initially my concern was for potential central cord syndrome, however he has notably diminished sensation throughout much of his body except for the groin. He does have some intact sensation over his nose lips and face, but his scalp also appears slightly diminished which is notably atypical considering the classic spinal cord injuries. There was concern for a large lesion from a central cord syndrome component, however he has no motor loss whatsoever on exam, and so this also does not make clear sense. Plus he still has intact vibration and position. Additionally anterior cord syndrome was suspected, but also does not make complete sense with his intact motor components. He has intact reflexes and normal strength otherwise. He has no fever to suggest abscess, and for that matter his imaging was notably benign just yesterday, and he has had no new trauma since then. I did contact [facility] and discussed the case with the trauma surgeon Dr. Griffin. She to felt that MRI is indicated for further spinal evaluation given the mechanism of his initial injury and his current symptomatology now. Unfortunately we do not have any MRI over the weekend, here at [facility]. Dr. Griffin has accepted the patient for ED to ED transfer for MRI. We are pending transfer availability at this time as there are 4 additional transfers still waiting to leave the emergency department. Likely time of transfer will be around 8 AM. We did apply a c-collar, however the patient remove this by himself. He continues to get up and down and go to the bathroom. We have recommended C-spine and general spine precautions for him, but the patient does disregard this. 3:16 AM Nursing has informed me that the patient and his family member have come and he elected elected not to stay in the emergency department. He did not want to wait for EMS transfer, and he has elected to leave AGAINST MEDICAL ADVICE to go down to [facility] on his own. I did not have an opportunity to discuss with him the risks and benefits of this option, he chose and elected to do this on his own, without waiting to have further conversation with physician staff. Patient has left AMA to drive directly to [facility] for MRI evaluation. The patient is able to speak clearly. There is no demonstration of any slurring of speech. There is evidence of clear decision making capacity. Patient is able to ambulate well without any difficulty. There are no signs of ataxia or stumbling motions. PFSH All Active Problems (Updated 05/19/25 @ 03:19 by Yuniel Thurston DO) Left leg paresthesias (Acute) Right leg paresthesias (Acute) Arm paresthesia, right (Acute) Arm paresthesia, left (Acute) Coccyx contusion (Acute) Lumbar strain (Acute) Social History Smoking/Tobacco Use Status: Current-Occasional Tobacco Type: cigarettes Smoking risk assessment performed?: Yes Alcohol Intake: current Alcohol Intake frequency: holidays/special occasions only Alcohol type: beer Drug use: Occasionally Substance use type: marijuana Housing: homeless Do you feel safe at home: Yes Do you feel safe in your relationship?: Yes PAWSS Have you Been Recently Intoxicated or Drunk Within the Last 30 days?: Yes Have you Ever Experienced Previous Episodes of Alcohol Withdrawal?: No Have you ever Experienced Withdrawal Seizures?: No Have you ever Experienced Delirium Tremens(DT)s?: No Have you ever undergone Alcohol Rehabilitation Treatment (i.e, inpt ot outpatient treatment programs)?: No Have you ever Experienced Blackouts?: No Have you ever Combined Alcohol with other Downers within the last 90 days?: No Evidence of Increased Autonomic Activity (i.e. HR>120, tremor, sweating, agitation, nausea)?: No Result: 1
[2025-05-19 03:08] VITALS: BP 163/102; PULSE 107; RESP 18; O2SAT 96
--- NOTE | 2025-05-21 13:08 | NUR.NOTE ---
Access chart to print the demographic sheet to go with [facility] billing requisitions and discharge diagnosis. Nursing Note:
--- NOTE | 2025-06-04 16:03 | NUR.NOTE ---
Nursing Note: Attempted to call patient to notify him of belongings left behind- his cell phone has been disconnected. Called his contact Tika who states she will pick it up on Wednesday. Belongings are in zone b left behind belongings inventory
== END 2025-05-19 03:57 | disposition left against medical advice (07) ==
PROVIDERS: Emergency Provider Student in an Organized Health Care Education/Training Program; PCP Internal Medicine
DX: R20.2 Paresthesia of skin; Z53.29 Procedure and treatment not carried out because of patient's decision for other reasons; Z91.81 History of falling
CPT/HCPCS: 99285 ×2; 96375; 96365; 81003; J0131; J2270; J2405